=== PATIENT | female | born 1945 | race Caucasian/White ===

== ENCOUNTER 2016-06-06 11:08 | Emergency (ER) | payer MEDICARE, BC ==
[2016-06-06] MEDS ORDERED: Acetaminophen TAB* 325 MG PO ONE (12:35)
--- NOTE | 2016-06-06 13:14 | UC ---
Respiratory Complaint HPI - HPI Summary HPI Summary: St cough and fever began last night--- - History of Current Complaint Chief Complaint: UCGeneralIllness Stated Complaint: ST/COUGH/CHILLS Time Seen by Provider: 06/06/16 13:05 Hx Obtained From: Patient ?: No Onset/Duration: Sudden Onset, Lasting Days - 1, Still Present Timing: Constant Severity Initially: Mild Severity Currently: Mild Pain Intensity: 6 Pain Scale Used: 0-10 Numeric Character: Cough: Nonproductive Aggravating Factors: Nothing Alleviating Factors: Nothing Associated Signs And Symptoms: Positive: Fever, Chills - Allergies/Home Medications Allergies/Adverse Reactions: Allergies Allergy/AdvReac Type Severity Reaction Status Date / Time Acetaminophen Allergy Nausea Verified 06/06/16 11:54 [From Hydrocodone W/Acetaminophen] Hydrocodone Allergy Nausea Verified 06/06/16 11:54 [From Hydrocodone W/Acetaminophen] PMH/Surg Hx/FS Hx/Imm Hx Previously Healthy: Yes - Surgical History Surgical History: Yes Surgery Procedure, Year, and Place: 3 bunyons. arthroscopic left knee. left elbow restructing d/t locations. trigger finger. tonsillectomy. TVT bladder sling. breast bx's - Family History Family History: denies cardiovascular issues in family lineage - Social History Occupation: Employed Part-time - substitiute teaching, Retired Lives: Alone Alcohol Use: Occasionally Substance Use Type: None Smoking Status (MU): Former Smoker - Immunization History Most Recent Tetanus Shot: within 4-5 years Review of Systems Constitutional: Fever, Chills Skin: Negative Eyes: Negative ENT: Sore Throat Respiratory: Cough Cardiovascular: Negative Gastrointestinal: Negative Genitourinary: Negative Motor: Negative Neurovascular: Negative Musculoskeletal: Negative Neurological: Negative Psychological: Negative All Other Systems Reviewed And Are Negative: Yes Physical Exam Triage Information Reviewed: Yes Appearance: Well-Appearing, No Pain Distress, Well-Nourished Vital Signs: Initial Vital Signs Temp 102.5 F 06/06/16 11:49 Pulse 85 06/06/16 11:49 Resp 16 06/06/16 11:49 BP 139/68 06/06/16 11:49 Pulse Ox 97 06/06/16 11:49 Vital Signs Reviewed: Yes Eye Exam: Normal Eyes: Positive: Conjunctiva Clear ENT Exam: Normal ENT: Positive: Normal ENT inspection, Hearing grossly normal, Pharynx normal, TMs normal. Negative: Nasal congestion, Nasal drainage, Tonsillar swelling, Tonsillar exudate, Trismus, Muffled/hoarse voice Neck exam: Normal Neck: Positive: Supple, Nontender, No Lymphadenopathy Respiratory Exam: Normal Respiratory: Positive: Chest non-tender, Lungs clear, Normal breath sounds, No respiratory distress, No accessory muscle use Cardiovascular Exam: Normal Cardiovascular: Positive: RRR, No Murmur, Pulses Normal, Brisk Capillary Refill Musculoskeletal Exam: Normal Musculoskeletal: Positive: Strength Intact, ROM Intact, No Edema Neurological Exam: Normal Neurological: Positive: Alert, Muscle Tone Normal Psychological Exam: Normal Psychological: Positive: Normal Response To Family, Age Appropriate Behavior Skin Exam: Normal UC Diagnostic Evaluation - Laboratory O2 Sat by Pulse Oximetry: 97 Diagnostic Studies Comment: rapid flu A/B and Strep A (-) Re-Evaluation - Re-Evaluation First Eval Change: Improved - temp down with tylenol and patient reports feeling better Respiratory Course/Dx - Course Course Of Treatment: tyelnol, ibuprofen increase fluids follow with pcp - Differential Dx/Diagnosis Differential Diagnosis/HQI/PQRI: Bronchitis, Influenza, Laryngitis, Lower Resp Infection, Sinusitis, Tuberculosis Provider Diagnoses: URI, Viral illness Discharge - Discharge Plan Condition: Stable Disposition: HOME Patient Education Materials: Fever in Adults (ED), Upper Respiratory Infection (ED) Referrals: Jojo Linares PA [Primary Care Provider] - 2 Days
[2016-06-06 13:25] VITALS: BP 117/76
== END 2016-06-06 13:25 | disposition home or self-care (01) ==
LOC: UCCORT 11:08
DX: J06.9 Acute upper respiratory infection, unspecified (principal); Z87.891 Personal history of nicotine dependence; Z88.5 Allergy status to narcotic agent
CPT/HCPCS: 87502; 87651; 99202; A9270-GY; G0463